=== PATIENT | female | born 2000 | race Caucasian/White ===

== ENCOUNTER 2022-07-23 01:30 | Outpatient (CLI) | payer SELFPAY ==
--- NOTE | 2022-07-23 | DI.US_ITS ---
Exam(s) US OB JASON WEIGHT EXAM: US OB JASON WEIGHT CLINICAL HISTORY: GROWTH SCAN,NO FUNDAL HT CHANGE. TECHNIQUE: Transabdominal obstetrical ultrasound performed. COMPARISON: No exams were available for comparison FINDINGS: Number of fetuses: 1 position: CEPHALIC Placental location: There is a grade 2 anterior placenta. The tip of the placenta is 13.4 cm from th e internal os. No evidence of previa. BIOMETRIC DATA: BPD: 9.29 cm, 37 weeks 5 days HC: 34.02 cm, 39 weeks 1 day AC: 32.03 cm, 36 weeks FL: 6.75 cm, 34 weeks 5 days EFW: 2863.32 g, LINK-TO-SR, 8.7 % Composite Age: 36 weeks 6 days ROSANA: 08/14/2022 Heart Rate: 150 bpm Amniotic fluid index: 17.14 cm. Visually, amount of fluid is within normal limits. Umbilical artery Doppler was performed. Please refer to the obstetrical worksheet for complete detai ls. IMPRESSION: 1. Single live intrauterine gestation as above. Estimated gestational age sonographically is 36 weeks 6 days. Estimated age based on LMP is 39 weeks 1 day. 2. Estimated weight is 2008 and 63gms. This is the 9th percentile. 3. Amniotic fluid index is 17.1 cm. Visually within normal limits. DATA REPOSITORY:
== END 2022-07-23 01:50 ==
PROVIDERS: Visit Provider Midwife
DX: Z34.93 Encounter for supervision of normal pregnancy, unspecified, third trimester (principal)
CPT/HCPCS: 76816